=== PATIENT | male | born 1970 | race Caucasian/White ===

== ENCOUNTER 2022-02-21 21:48 | Emergency (ER) | payer SELFPAY ==
[2022-02-21 21:50] VITALS: BP 90/67; PULSE 67; RESP 18; TEMP 36.7; O2SAT 94; BMI 35.9
--- NOTE | 2022-02-21 22:05 | RAD_ITS ---
STUDY: X-RAY - LEFT ELBOW REASON FOR EXAM: Male, 51 years old. trauma, dog bite TECHNIQUE: 3 view(s) of the elbow. COMPARISON: None. FINDINGS: Normal visualized humerus, radius and ulna. Normal radiocapitellar and ulnotrochlear articulations. Anterior soft tissue laceration. Prominent olecranon enthesophyte RAD/Elbow min 3 Views IMPRESSION: Soft tissue laceration without acute osseous finding Electronically Signed: Malik Solomon DO at 22:41 EDT ,
--- NOTE | 2022-02-21 22:10 | EDS_ITS ---
HPI History of Present Illness Chief Complaint: Bite Informant: patient Narrative Narrative: Patient was bit by a family member's dog in his left arm/elbow area just a little before arrival. No active bleeding. No numbness tingling weakness. He can move his elbow okay without pain. Immunizations are reportedly up-to-date on the dog. It was acting normally. However he was trying to feed a dog that was not his. Patient has his left arm bitten but is right-hand dominant. Denies chronic medical conditions including diabetes. ROS ROS ED Constitutional Constitutional ED: Denies chills or fever(s) Gastrointestinal Gastrointestinal: Denies nausea or vomiting Musculoskeletal Musculoskeletal: Reports other Details: See history of present illness. Integumentary Reports other Details: See history of present illness. Neurologic Neurologic: Denies paresthesias or weakness Endocrine Endocrinology: Denies polydipsia or polyuria Hematologic/Lymphatic Hematologic/Lymphatic: Denies easy bleeding or easy bruising Allergic/Immunologic Allergic/Immunologic ED: Denies urticaria PFSH PFSH Home Medications amoxicillin 875 mg-potassium clavulanate 125 mg tablet 1 tab PO BID #20 tabs 02/21/22 [Rx Last Taken Unknown] Allergy/AdvReac Type Severity Reaction Status Date / Time No Known Allergies Allergy Verified 02/21/22 21:53 Surgical History History of ankle surgery Social History Smoking Status: Never smoker EXAM Physical Exam Const Vital Signs: 02/21/22 21:50 Temperature 98.1 F Temperature Source Oral Pulse Rate 67 Respiratory Rate 18 Blood Pressure 90/67 Blood Pressure Mean 74 Pulse Ox 94 Oxygen Delivery Method Room Air Positive well nourished and well developed General Appearance ED: well developed and NAD HEENT normocephalic Resp normal respiratory effort Cardio regular rate and regular rhythm GI non-tender and non-distended Extremity Extremity Narrative: Patient has 2 small bite/puncture robles on the anterior lateral aspect left elbow. He has a 1-1 and half centimeter open area on the medial aspect. He then has a larger open area distal to the elbow medially. This is about 2-1/2 to 3 cm in length. No active bleeding from any of these. No drainage of fluid. Patient has normal Nehemiah's and reverse Nehemiah's distally. Neuro Neuro Narrative: Patient has normal sensation operator specialist communications strength. No sign of neurologic injury. Sensorium / Orientation: alert Skin Skin Narrative: See above. MDM MDM MDM Narrative Medical decision making narrative: X-ray shows soft tissue laceration but no sign of acute osseous finding. I discussed risks and benefits. I am not seeing any indication of joint puncture. I explained to the patient that closing these wounds tightly will increase infection. The one wound he has open is a fair amount so getting some closure this may help. I explained this might increase infection risk a small a mount but we will not close it skin to skin but will leave it open. We will continue with antibiotics. He preferred to have this sutured part way. Only one of the 4 wounds will be sutured together will be kept open. Procedure note: Suture laceration: Risk benefits discussed as above. The area was scrubbed. It was anesthetized with 6 cc of 1% lidocaine locally with good anesthesia. It was then copiously scrubbed with wound cleanser and irrigated. It was no bleeding. We irrigated it with almost 500 cc of saline to get a good clean. It was sutured with 4 interrupted 3-0 Ethilon. The edges were brought about 3 mm apart to allow for continued drainage. I had a long discussion about reasons to return with this patient. Radiography Diagnostic Testing: Clinical Impression(s) from Imaging Studies Elbow X-Ray 02/21/22 22:05 IMPRESSION: Soft tissue laceration without acute osseous finding Electronically Signed: Malik Solomon DO at 22:41 EDT Reading Location ID and State: [facility] / [place] Tel , Service support , Discharge Plan Triage Chief Complaint: Bite ED Provider: Oscar Hollis Dx/Rx/DC Orders Clinical Impression: Dog bite of left arm Instructions: ED Dog Bite Prescriptions: New amoxicillin-pot clavulanate 875-125 mg tablet 1 tab PO BID Qty: 20 0RF Primary Care Provider: Kel Barker Referrals: Kel Barker DO [Primary Care Provider] - 10-14 Days suture removal Disposition Disposition: Home, Self Care
[2022-02-21] MEDS: Amox/Clavulanate 875 MG Tablet PO (22:23)
[2022-02-21] MEDS: Diphth,Pertuss(Acell),Tet Vac 0.5 ML Vial IM (22:23)
[2022-02-21] MEDS: Lidocaine 1% (20 ml mdv) 20 ML Vial INFILT (22:23)
[2022-02-22 00:18] VITALS: BP 110/71; PULSE 82; RESP 15; O2SAT 97
== END 2022-02-22 00:20 | disposition home or self-care (01) ==
PROVIDERS: Emergency Provider Emergency Medicine; PCP Family Medicine; Visit Provider Emergency Medicine
DX: S51.012A Laceration without foreign body of left elbow, initial encounter (principal); S51.032A Puncture wound without foreign body of left elbow, initial encounter; W54.0XXA Bitten by dog, initial encounter; Y93.89 Activity, other specified; Y99.8 Other external cause status; Z23 Encounter for immunization
CPT/HCPCS: 12002; 73080; 90471; 90715; 99285